=== PATIENT | male | born 1960 | race African-American/Black ===

== ENCOUNTER 2019-08-20 03:34 | Emergency (ER) | payer SELFPAY ==
[~2019-08-20] VITALS: Ht 167.6 cm; Wt 68.0 kg
[2019-08-20] MEDS ORDERED: BACITRACIN ZINC OINT UDPKT TOP ONE ×2 (06:45→17:45)
[2019-08-20] MEDS ORDERED: TETANUS, DIPHTHERIA, PERTUSSIS VAC/PF 0.5ML (>7YR OLD) IM ONE (06:45)
[2019-08-20] MEDS ORDERED: HYDROCODONE/ACETAMINOPHEN 5/325MG TABLET PO ONE (06:45)
[2019-08-20] MEDS ORDERED: LIDOCAINE HCL 2% JELLY 5ML TOP ONE (12:30)
[2019-08-20] MEDS ORDERED: LIDOCAINE HCL 1% 20ML VIAL (Pyxis) INJ INFIL ONE (12:30)
[2019-08-20] MEDS ORDERED: CEPHALEXIN 250MG CAPSULE PO ONE ×2 (18:15→20:00)
[2019-08-21] MEDS: CEPHALEXIN 250MG CAPSULE PO SCH ×2 (04:00→09:52)
[2019-08-21 10:46] VITALS: BP 122/78
== END 2019-08-21 10:58 | disposition short-term general hospital (02) ==
LOC: ER 04:38
DX: S00.11XA Contusion of right eyelid and periocular area, initial encounter (principal); Y08.89XA Assault by other specified means, initial encounter; Y93.89 Activity, other specified; Y92.89 Other specified places as the place of occurrence of the external cause; Y99.8 Other external cause status; F31.9 Bipolar disorder, unspecified; F20.9 Schizophrenia, unspecified
CPT/HCPCS: 70450; 70486; 90471; 90715; 99285; J3490